=== PATIENT | female | born 1945 | race Caucasian/White ===

== ENCOUNTER 2023-06-07 11:36 | Inpatient (IN) | payer MEDICARE, BC, SELFPAY ==
[2023-06-07 11:42] VITALS: BP 121/62; PULSE 66; RESP 18; TEMP 37; O2SAT 95
--- NOTE | 2023-06-07 11:46 | ED_ITS ---
HPI - General Adult General Chief complaint: Skin/Abscess/Foreign Body Stated complaint: cat bite/ L swollen ankle Time Seen by Provider: 06/07/23 12:33 Source: patient and family Mode of arrival: ambulatory Limitations: no limitations History of Present Illness HPI narrative: 78 yo female with history of afib on Xarelto, hypothyroidism, HLD who presents to the ER from home for evaluation of worsening redness, swelling and pain of the left lower leg after getting bitten by her cat at home on the evening of 06/05. She states she accidentally stepped on him and he bite her lower leg. There was minor bleeding from a puncture wound at the time. She saw her Podaitrist yesterday for a callus removal on 3rd toe of the left foot and the redness was still small. She states by yesterday afternoon the redness had spread around the bite and her daughter brought her to Urgent Care. She had chills but no fever. She was started on Augmentin which she took yesterday and today. She woke up today with rapid progression of the redness up the entire lower leg and down into the foot. She feels unwell, decreased appetite. No chest pain, SOB, N/V/D or abdominal pain. MD complaint: cat bite LLE Onset (ago): day(s) (2) Location: left and lower extremity Radiation: proximal Severity: moderate Severity scale (1-10): 6 Quality: aching Pain Consistency: constant Relieving factors: rest Exacerbating factors: other (palpation and ambulation) Associated symptoms: loss of appetite and other (chills) Treatments prior to arrival: other (augmentin) Related Data Allergies Allergy/AdvReac Type Severity Reaction Status Date / Time codeine AdvReac Nausea Verified 06/07/23 11:53 oxycodone AdvReac Nausea Uncoded 06/07/23 11:49 Review of Systems 2 Review of Systems: Yes all other systems are reviewed and are negative PMFSH Past Medical History Medical History (Updated 06/07/23 @ 13:32 by Yenny Patton) Blood clot in eye Glaucoma Hypothyroid HLD (hyperlipidemia) Hypertension 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 Atrial fibrillation Surgical History (Updated 06/07/23 @ 13:33 by Yenny Patton) Knee joint replacement status Social History Social History Smoked in Last 30 Days: No Use of substances other than those prescribed or required for medical reasons: No Advance Directives: No Advance Directives Information Provided: Yes Physical Exam ED Vital Signs: Vital Signs - 24 hr 06/07/23 11:42 06/07/23 13:22 Temperature 98.6 F 98.3 F Pulse Rate 66 74 Respiratory Rate 18 18 Blood Pressure 121/62 151/70 H Pulse Oximetry 95 97 Oxygen Delivery Method Room Air Room Air BMI result Body Mass Index 30.0 Appearance: Alert. Oriented X3. No acute distress. Head: normocephalic, atraumatic. Eyes: Pupils equal, round and reactive to light. ENT: Pharynx normal. No tonsillar swelling or exudate. Neck: Normal inspection. Neck supple. CVS: Normal heart rate and rhythm. Pulses normal. Respiratory: No respiratory distress. Breath sounds normal. Abdomen: Soft and nontender. +BS x4 Skin: Skin warm and dry. Normal skin color. Normal skin turgor. No rashes. Extremities: Left lower extremity with significant erythema circumfrentially to the lower leg and extending down to the foot. foot is warm and well perfused with 2+ PD Pulses. compartments soft and compressible. Neuro/psych: Oriented X 3. No motor deficit. No sensory deficit. CN II-XII intact. Normal speech and cognition. Course Course Course Narrative: This is a rapid medical exam: Additional HPI, ROS, PE not included below will be deferred to primary provider. Patient is an 78-year-old female presenting to the ED with pain, redness, and swelling to left lower leg after cat bite night. States it is her own cat, is UTD on vaccinations. She states she accidentally stepped on him which caused him to bite her. Reports chills Friday. Went to urgent care yesterday and started on Augmentin (took 2 doses) but states the redness has spread significantly since that time. Also reports some nausea. Significant erythema, warmth, and swelling to entire LLE. Plan: Blood cultures, labs Medications Administered Generic Name Dose Route Start Last Admin Trade Name Freq PRN Reason Stop Dose Admin Sodium Chloride 1,000 mls @ 999 mls/hr 06/07/23 13:00 06/07/23 13:19 Ns IVCONT 06/07/23 14:00 999 mls/hr .Q1H1M CHARLES Administration Discontinued Medications Generic Name Dose Route Start Last Admin Trade Name Rickq PRN Reason Stop Dose Admin Ampicillin Sodium/Sulbactam 100 mls @ 200 mls/hr 06/07/23 12:33 06/07/23 13:18 Sodium 3 gm/ Sodium Chloride IV 06/07/23 13:02 200 mls/hr ONCE ONE Administration Medical Decision Making Medical Decision Making [facility] Narrative: 78 yo female with history of afib on Xarelto, HLD, hypothyroidism presenting with worsening redness, pain and swelling of left lower leg after a cat bite 2 days ago. Took Augmentin x2 with significant increase in the redness size today. VSS on arrival, no fever or tachycardia. WBC 20K. blood cultures sent. patient is not septic at this time. patient will require admission for IV antibiotics and close monitoring. patient and family updated on plan of care IV unasyn ordered and 1 L IVF. hospitalist TT for admission Differential Diagnosis Differential Diagnoses: The differential diagnosis associated with the presentation includes cellulitis 2/2 cat bite, rhabdomyolysis, abscess, cat scratch fever, DVT, compartment syndrome Admission/Observation Consideration of admission/observation: Escalation of care including admission/observation considered leukocytosis 20K with rapid progression despite oral abx Consult Healthcare Provider Management of the patient was discussed with: Hospitalist Lab Data [facility] Lab Attestation statement: I reviewed the patient's lab results. significant leukocytosis 06/07/23 12:05 06/07/23 12:05 Labs: Lab Results 06/07/23 Range/Units 12:05 WBC 20.4 H (4.8-10.8) X10*3/uL RBC 4.01 L (4.20-5.50) X10*6/uL Hgb 12.1 (12.0-16.0) g/dl Hct 37.5 (37.0-47.0) % MCV 93.5 (80.0-98.0) fL MCH 30.2 (27.0-33.0) pg MCHC 32.3 (31.0-35.0) g/dl RDW 12.9 (11.0-16.0) % Plt Count 169 (160-400) X10*3/uL MPV 9.7 (9.4-12.3) fL Immature Gran % (Auto) 0.4 (0.0-0.4) % Neut % (Auto) 85.8 H (45-73) % Lymph % (Auto) 5.4 L (20-40) % [place] % (Auto) 8.0 (2-11) % Eos % (Auto) 0.3 (0-4) % Baso % (Auto) 0.1 (0-2) % Lymph # (Auto) 1.1 L (1.2-4.9) X10*3/uL [place] # (Auto) 1.6 H (0.1-1.2) X10*3/uL Eos # (Auto) 0.1 (0.0-0.4) X10*3/uL Baso # (Auto) 0.0 (0.0-0.2) X10*3/uL Abs Immat Gran (auto) 0.09 H (0.00-0.03) X10*3/uL Absolute Neuts (auto) 17.5 H (2.0-8.3) x10*3/uL Absolute Nucleated RBC 0.000 (0.0-0.012) X10*3/uL Nucleated RBC % (auto) 0.0 (0.0-0.2) /100WBC Smear Tech's Comments VERIFIED ESR 13 (0-20) MM/HR Sodium 137 (135-145) mmol/L Potassium 3.8 (3.3-5.1) mmol/L Chloride 106 (96-108) mmol/L Carbon Dioxide 22 (22-29) mmol/L Anion Gap 13 (12-20) BUN 29 H (9-16) mg/dL Creatinine 0.88 (0.5-1.4) mg/dL Estim Creat Clear Calc 53.8 Estimated GFR > 60 Random Glucose 124 H (60-115) mg/dL Lactic Acid 1.4 (0.5-2.0) mmol/L Calcium 8.8 (8.4-10.2) mg/dL Total Bilirubin 1.4 H (0.0-1.0) mg/dL AST 25 (5-31) U/L ALT 31 (0-31) U/L Alkaline Phosphatase 77 (39-117) U/L Total Creatine Kinase 37 (26-140) U/L C-Reactive Protein 14.69 H (< or = 0.50) mg/dL Total Protein 6.4 L (6.5-8.0) g/dL Albumin 3.7 (3.5-5.0) g/dL Independent Historian Clinical information obtained from an independent historian. History obtained from or confirmed by: Other (adult daughter at bedside) Tests considered The following testing was considered but not selected: considered LE doppler but on xarelto considered CT scan but no evidence of focal abscess on exam Prescription Management I considered prescription management with: Pain Medication and Antibiotic Chronic Conditions Patient?s care impacted by: Other (afib on xarelto) Critical Care Time Critical Care Time Critical Care Time: Yes Total Critical Care Time: 31 Attestation: I have personally provided critical care time exclusive of time spent on separately billable procedures. Time includes review of lab data, discussion with consultants, and monitoring for potential decompensation. Intervention performed as documented. Discharge Plan Discharge Clinical Impression: Infected cat bite of lower leg Qualifiers: Encounter type: initial encounter Laterality: left Qualified Code(s): S81.852A - Open bite, left lower leg, initial encounter Patient Disposition: Admitted As Inpatient
[2023-06-07 12:16] LABS: Basophils Percent Auto 0.1 % (0-2); Eosinophils Absolute Auto 0.1 X10*3/uL (0.0-0.4); Eosinophils Percent Auto 0.3 % (0-4); Hematocrit 37.5 % (37.0-47.0); Hemoglobin 12.1 g/dl (12.0-16.0); Imm Gran Abs Auto 0.09 X10*3/uL (0.00-0.03); Imm Gran Pct Auto 0.4 % (0.0-0.4); Lymphocytes Absolute Auto 1.1 X10*3/uL (1.2-4.9); Lymphocytes Percent Auto 5.4 % (20-40); MANUAL DIFF FLAG SCAN; Mean Corpuscular HGB Conc 32.3 g/dl (31.0-35.0); Mean Corpuscular Hemoglobin 30.2 pg (27.0-33.0); Mean Corpuscular Volume 93.5 fL (80.0-98.0); Mean Platelet Volume 9.7 fL (9.4-12.3); Monocytes Absolute Auto 1.6 X10*3/uL (0.1-1.2); Neutrophils Absolute Auto 17.5 x10*3/uL (2.0-8.3); Neutrophils Percent Auto 85.8 % (45-73); Platelet Count 169 X10*3/uL (160-400); Red Blood Count 4.01 X10*6/uL (4.20-5.50); Red Cell Distribution Width 12.9 % (11.0-16.0); SCAN SMEAR FLAG 1; White Blood Count 20.4 X10*3/uL (4.8-10.8)
[2023-06-07 12:29] LABS: Lactic Acid 1.4 mmol/L (0.5-2.0)
[2023-06-07 12:33] LABS: Alanine Aminotransferase 31 U/L (0-31); Albumin Level 3.7 g/dL (3.5-5.0); Alkaline Phosphatase 77 U/L (39-117); Anion Gap 13 (12-20); Aspartate Amino Transferase 25 U/L (5-31); Bilirubin Total 1.4 mg/dL (0.0-1.0); Blood Urea Nitrogen 29 mg/dL (9-16); C Reactive Protein 14.69 mg/dL (< or = 0.50); Calcium 8.8 mg/dL (8.4-10.2); Carbon Dioxide 22 mmol/L (22-29); Chloride 106 mmol/L (96-108); Creatinine Clr Calc Pharmacy 53.8; Estimated Glomerular Filt Rate > 60; Glucose Random 124 mg/dL (60-115); Potassium 3.8 mmol/L (3.3-5.1); Sodium 137 mmol/L (135-145); Total Protein 6.4 g/dL (6.5-8.0)
[2023-06-07 13:04] LABS: Erythrocyte Sedimentation Rate 13 MM/HR (0-20)
[2023-06-07] MEDS: Ampicillin Sodium/Sulbactam Na 3 GM in 0.9 % Sodium Chloride 100 ML IV ×2 (13:18→17:29)
[2023-06-07] MEDS: 0.9 % Sodium Chloride 1,000 ML 999 ML IVCONT (13:19)
[2023-06-07 13:22] VITALS: BP 151/70; PULSE 74; RESP 18; TEMP 36.8; O2SAT 97
[2023-06-07 13:29] LABS: SLIDE REVIEW VERIFIED
--- NOTE | 2023-06-07 13:57 | P.HPHOSP_ITS ---
<Statement entered by Padmini Blue MD - 06/07/23 15:55> the patient was seen and evaluated with MARC Aguilar. I agree with his note, assessment and plan with the following. An 78 y\o female with a PMH of?persistent AFib on Xarelto, HLD, and HTN who presents with lower left leg redness and swelling secondary to cat bite. # Left lower leg cellulitis secondary to cat bite Had 1 day of Augmentin with worsening symptoms Start Unasyn follow clinical course Rest of evaluations by MARC note. History of Present Illness Date of Service: 06/07/23 Attending physician on admission: Padmini Blue Chief Complaint: Cellulitis from cat bite Pt is an 78-year-old female with a PMH significant for?persistent AFib on Xarelto, hypothyroidism, HLD, and HTN who presents to the ED for evaluation of lower left leg redness and swelling secondary to cat bite. Patient states on evening she went to take a bath and stepped on her cat Aixa who was laying in front of the tub. Cat responded by biting pt in the ankle, drawing blood. Pt reports she swab the area with alcohol, soaked her leg, and put a bandage on the bite. Next day patient noticed redness and swelling around her left ankle, felt chills but did not register a fever. Went to an urgent care at the urging from her daughter and was prescribed Augmentin. Patient took medication as prescribed, but when she awoke this morning patient noticed redness had significantly advanced upper leg to just below her knee, and swelling had also significantly increased. Daughter then prompted patient to come to the emergency room for further evaluation. Patient has experienced some nausea, but no vomiting. Denies any other systemic symptom: No chest pain/pressure, palpitations. No abdominal pain. No significant difficulty ambulating. No joint pain. Denies shortness of breath. In the ED patient was afebrile but slightly hypertensive 151/70. Labs were significant for leukocytosis of 20.4, BUN 29, bilirubin 1.4, C-reactive protein 14.69. Labs otherwise grossly unremarkable. Pt was treated with IVF and Unasyn. Pt will be admitted to the hospital for cellulitis secondary to cat bite that has failed outpatient therapy. 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 Atrial fibrillation Surgical History Knee joint replacement status Social History Smoked in Last 30 Days: No Use of substances other than those prescribed or required for medical reasons: No Advance Directives: No Advance Directives Information Provided: Yes Meds Allergies Allergy/AdvReac Type Severity Reaction Status Date / Time codeine AdvReac Nausea Verified 06/07/23 11:53 oxycodone AdvReac Nausea Uncoded 06/07/23 11:49 Active Medications: Current Medications Sodium Chloride (Ns) 1,000 mls @ 999 mls/hr IVCONT .Q1H1M CHARLES Stop: 06/07/23 14:00 Last Admin: 06/07/23 13:19 Dose: 999 mls/hr Home Medications Medication Instructions Recorded Confirmed Last Taken Type amoxicillin 400 mg-potassium 1 tab PO BID 06/07/23 06/07/23 06/07/23 History clavulanate 57 mg chewable tablet atenolol 50 mg tablet 50 mg PO DAILY 06/07/23 06/07/23 06/07/23 History atorvastatin 20 mg tablet 20 mg PO BEDTIME 06/07/23 06/07/23 06/06/23 History ketorolac 0.5 % eye drops 1 drp ophthalmic (eye) QID PRN 06/07/23 06/07/23 Unknown History Pain, Mild levothyroxine 88 mcg tablet 88 mcg PO DAILY@0600 06/07/23 06/07/23 06/07/23 History lisinopril 10 mg tablet 10 mg PO DAILY 06/07/23 06/07/23 06/07/23 History rivaroxaban 20 mg tablet (Xarelto) 20 mg PO DAILY@1700 06/07/23 06/07/23 06/06/23 History timolol maleate 0.5 % eye drops 1 drp ophthalmic (eye) BID 06/07/23 06/07/23 06/07/23 History Physical Exam 2 Vital Signs and Narrative: Vital Signs: Last Vital Signs Temp 98.3 F 06/07/23 13:22 Pulse 74 06/07/23 13:22 Resp 18 06/07/23 13:22 BP 151/70 H 06/07/23 13:22 Pulse Ox 97 06/07/23 13:22 O2 Del Method Room Air 06/07/23 13:22 BMI result Body Mass Index 30.0 General: AOx3, no acute distress Resp: CTA bilaterally CVS: Irregularly irregular rhythm GI: +BS, NT, no distention Neuro: Cranial nerves II-XII grossly intact bilaterally. Motor grossly intact bilaterally Extremities: Left lower extremity swelling and erythema from ankle to knee. See picture below. Psych: Appropriate affect Results Labs 06/07/23 12:05 06/07/23 12:05 Labs: Laboratory Results - last 24 hr 06/07/23 12:05 MCV 93.5 MCH 30.2 MCHC 32.3 RDW 12.9 Plt Count 169 MPV 9.7 Immature Gran % (Auto) 0.4 Neut % (Auto) 85.8 H Lymph % (Auto) 5.4 L [place] % (Auto) 8.0 Eos % (Auto) 0.3 Baso % (Auto) 0.1 Lymph # (Auto) 1.1 L [place] # (Auto) 1.6 H Eos # (Auto) 0.1 Baso # (Auto) 0.0 Abs Immat Gran (auto) 0.09 H Absolute Neuts (auto) 17.5 H Absolute Nucleated RBC 0.000 Nucleated RBC % (auto) 0.0 Smear Tech's Comments VERIFIED ESR 13 Anion Gap 13 Estim Creat Clear Calc 53.8 Estimated GFR > 60 Random Glucose 124 H Lactic Acid 1.4 Calcium 8.8 Total Bilirubin 1.4 H AST 25 ALT 31 Alkaline Phosphatase 77 Total Creatine Kinase 37 C-Reactive Protein 14.69 H Total Protein 6.4 L Albumin 3.7 Assessment and Plan (1) Infected cat bite of lower leg: Qualifiers: Encounter type: initial encounter Laterality: left Qualified Code(s): S81.852A - Open bite, left lower leg, initial encounter; L08.9 - Local infection of the skin and subcutaneous tissue, unspecified; W55.01XA - Bitten by cat, initial encounter Status: Acute Plan Pt is an 78-year-old female with a PMH significant for?persistent AFib on Xarelto, hypothyroidism, HLD, and HTN who presents to the ED for evaluation of lower left leg redness and swelling secondary to cat bite. Pt will be admitted to the hospital for cellulitis secondary to cat bite that has failed outpatient therapy. Left lower leg cellulitis secondary to cat bite Patient initially presented yesterday to urgent care with redness only at her ankle, was prescribed Augmentin Woke up today with chills and redness advanced all the way up leg to just below the knee Will treat with Unasyn, started on 06/07/2023 Persistent AFib Continue atenolol, Xarelto HLD Continue statin HTN Continue lisinopril Hypothyroidism Continue levothyroxine Full Code Attending:?Dr. Christy DVT Prophylaxis: On Xarelto Pt will require a hospitalization of at least two nights for treatment of?left lower leg cellulitis secondary to cat bite that has failed outpatient therapy. Patient will require IV antibiotics. Time Spent With Patient Time: Total time managing care of this patient today ____ minutes. Quality Stroke Does the patient have a stroke diagnosis?: No VTE Prior VTE?: No VTE Risk Level:: Medical - moderate - high VTE Device Contraindication: Treatment Not Indicated VTE Drug Contraindication: N/A - Med Ordered
--- NOTE | 2023-06-07 14:51 | PC.NURSE ---
aox4. walked well to BR clear yellow urine. calm, coop. no distress. resting
--- NOTE | 2023-06-07 15:04 | PHA.MEDREC ---
Pharmacy Consult ? Medication Reconciliation Pharmacy has completed the medication reconciliation. Patient with list at bedside that matched claim history, stated she is no longer using nyamc powder or ketoconazole cream for skin folds. Took all morning meds today.
[2023-06-07 15:48] VITALS: BP 125/64; PULSE 76; RESP 16; O2SAT 97
[2023-06-07 16:00] VITALS: BP 131/61; PULSE 75; RESP 18; TEMP 36.2; O2SAT 96
[2023-06-07] MEDS: Rivaroxaban 20 MG TABLET PO (17:29)
[2023-06-07] MEDS: 0.9 % Sodium Chloride Flush 3 ML SYRINGE IVFLUSH ×2 (17:29→20:40)
[2023-06-07 19:12] VITALS: BP 129/60; PULSE 78; RESP 17; TEMP 36.2; O2SAT 96
[2023-06-07] MEDS: Atorvastatin Calcium 20 MG TABLET PO (20:39)
[2023-06-08] MEDS: Ampicillin Sodium/Sulbactam Na 3 GM in 0.9 % Sodium Chloride 100 ML IV ×4 (00:03→17:53)
[2023-06-08] MEDS: Acetaminophen 325 MG TABLET 650 MG PO ×3 (00:03→17:55)
[2023-06-08 04:00] VITALS: BP 138/67; PULSE 71; RESP 18; TEMP 37; O2SAT 94
[2023-06-08 05:42] LABS: Hemoglobin 11.3 g/dl (12.0-16.0); Mean Corpuscular HGB Conc 31.4 g/dl (31.0-35.0); Mean Corpuscular Hemoglobin 29.9 pg (27.0-33.0); Mean Corpuscular Volume 95.2 fL (80.0-98.0); Mean Platelet Volume 9.8 fL (9.4-12.3); Platelet Count 154 X10*3/uL (160-400); Red Blood Count 3.78 X10*6/uL (4.20-5.50); Red Cell Distribution Width 13.1 % (11.0-16.0); White Blood Count 15.2 X10*3/uL (4.8-10.8)
[2023-06-08 05:55] LABS: Anion Gap 13 (12-20); Blood Urea Nitrogen 19 mg/dL (9-16); Calcium 8.5 mg/dL (8.4-10.2); Carbon Dioxide 24 mmol/L (22-29); Chloride 111 mmol/L (96-108); Creatinine Clr Calc Pharmacy 63.9; Estimated Glomerular Filt Rate > 60; Glucose Random 94 mg/dL (60-115); Potassium 4.1 mmol/L (3.3-5.1); Sodium 144 mmol/L (135-145)
[2023-06-08] MEDS: Levothyroxine Sodium 88 MCG TABLET PO (06:02)
[2023-06-08 07:52] VITALS: BP 155/77; PULSE 70; RESP 16; TEMP 36.6; O2SAT 95
[2023-06-08] MEDS: atenoloL 50 MG TABLET PO (08:04)
[2023-06-08] MEDS: 0.9 % Sodium Chloride Flush 3 ML SYRINGE IVFLUSH ×3 (08:04→21:38)
[2023-06-08] MEDS: lisinopriL 10 MG TABLET PO (08:04)
--- NOTE | 2023-06-08 10:39 | MHC.CM.PN ---
IMM 06/08/23 Pt lives in home with her son, she is independent, does not have home health services. She has a walker and a cane at home, and uses the cane outside of the house. Daughter and son are HCP and alternate, she has document at home, it is not on file here. Her PCP is Stanislav Dtoson at [facility] in [facility]. Plan is home, self care, family to transport home. CM to follow and assist with DC plan.
--- NOTE | 2023-06-08 14:04 | P.PNIM_ITS ---
Subjective Subjective Date of Service: 06/08/23 Interval History: Seen and evaluated Feels little better ERythema improving no fever overnight Review of Systems Review of Systems: Yes all other systems are reviewed and are negative Physical Exam 2 Vital Signs: Vital Signs: Last Vital Signs Temp 97.8 F 06/08/23 07:52 Pulse 70 06/08/23 07:52 Resp 16 06/08/23 07:52 BP 155/77 H 06/08/23 07:52 Pulse Ox 95 06/08/23 07:52 O2 Del Method Room Air 06/08/23 07:52 BMI result Body Mass Index 30.0 Const: Other: Constitutional : Awake, interactive, not in distress Neck : Normal inspection, Supple Cardiovascular : RRR, no JVP, no lower extremity edema Respiratory : good bilateral air entry, no crackles, wheezes or rhonchi Gastrointestinal: soft, lax, Normal bowel sounds, Non tender Skin : Warm, Dry, LE erythema up to the knee which seems resolving with less tenderness Neurological : Alert & oriented x3, No focal deficit Objective Data Active Medications Acetaminophen (Acetaminophen 325 Mg Tablet) 650 mg PO Q6H PRN PRN Reason: Pain, Mild (Pain Scale 1-3) Last Admin: 06/08/23 08:04 Dose: 650 mg Documented By: COTEMA Atenolol (Atenolol 50 Mg Tablet) 50 mg PO DAILY [facility]; Protocol Last Admin: 06/08/23 08:04 Dose: 50 mg Documented By: COTEMA Atorvastatin Calcium (Atorvastatin Calcium 20 Mg Tablet) 20 mg PO BEDTIME [facility] Last Admin: 06/07/23 20:39 Dose: 20 mg Documented By: CASTILM Benzonatate (Benzonatate 100 Mg Capsule) 100 mg PO TID PRN PRN Reason: Cough Docusate Sodium (Docusate Sodium 100 Mg Capsule) 100 mg PO DAILY PRN PRN Reason: Constipation Ampicillin Sodium/Sulbactam (Sodium 3 gm/ Sodium Chloride) 100 mls @ 200 mls/hr IV Q6H [facility] Last Infusion: 06/08/23 13:31 Dose: Infused Documented By: COTEMA Ketorolac Tromethamine (Ketorolac Tromethamine 0.5% Op 5 Ml Drops) 1 drop EYE- BOTH QID PRN PRN Reason: Pain, Mild Levothyroxine Sodium (Levothyroxine Sodium 88 Mcg Tablet) 88 mcg PO DAILY@0600 [facility] Last Admin: 06/08/23 06:02 Dose: 88 mcg Documented By: CASTILM Lisinopril (Lisinopril 10 Mg Tablet) 10 mg PO DAILY [facility]; Protocol Last Admin: 06/08/23 08:04 Dose: 10 mg Documented By: REMEDIOS Melatonin (Melatonin 3 Mg Tablet) 6 mg PO BEDTIME PRN PRN Reason: Insomnia Ondansetron HCl (Ondansetron Hcl 4 Mg/2 Ml Vial) 4 mg IVPUSH Q8H PRN PRN Reason: Nausea and Vomiting Rivaroxaban (Rivaroxaban 20 Mg Tablet) 20 mg PO DAILY@1700 [facility] Last Admin: 06/07/23 17:29 Dose: 20 mg Documented By: PRESTJYOTI Sodium Chloride (0.9 % Sodium Chloride Flush 3 Ml Syringe) 3 ml IVFLUSH QSHIFT [facility] Last Admin: 06/08/23 08:04 Dose: 3 ml Documented By: REMEDIOS Timolol Maleate (Timolol Maleate 0.5 % Oph Areli 5 Ml Drbtl) 1 drop EYE-BOTH BID [facility] Last Admin: 06/08/23 08:01 Dose: Not Given Documented By: REMEDIOS Non-Admin Reason: Med Not Available Labs 06/08/23 05:20 06/08/23 05:20 Labs: Laboratory Results - last 24 hr 06/08/23 05:20 MCV 95.2 MCH 29.9 MCHC 31.4 RDW 13.1 Plt Count 154 L MPV 9.8 Absolute Nucleated RBC 0.000 Nucleated RBC % (auto) 0.0 Anion Gap 13 Estim Creat Clear Calc 63.9 Estimated GFR > 60 Random Glucose 94 Calcium 8.5 Assessment and Plan (1) Infected cat bite of lower leg: Status: Acute Plan Pt is an 78-year-old female with a PMH significant for?persistent AFib on Xarelto, hypothyroidism, HLD, and HTN who presents to the ED for evaluation of lower left leg redness and swelling secondary to cat bite. Pt will be admitted to the hospital for cellulitis secondary to cat bite that has failed outpatient therapy. Left lower leg cellulitis secondary to cat bite pending cultures Unasyn, started on 06/07/2023 keep leg elevated and clean Persistent AFib Continue atenolol, Xarelto HLD Continue statin HTN Continue lisinopril Hypothyroidism Continue levothyroxine Full Code Attending:?Dr. Christy DVT Prophylaxis: On Xarelto Pt will require a hospitalization overnight for treatment of?left lower leg cellulitis secondary to cat bite that has failed outpatient therapy. Patient will require IV antibiotics. Time Spent With Patient Time: Total time managing care of this patient today ____ minutes. Quality Stroke Does the patient have a stroke diagnosis?: No VTE Prior VTE?: No VTE Risk Level:: Medical - moderate - high VTE Device Contraindication: Treatment Not Indicated VTE Drug Contraindication: N/A - Med Ordered
[2023-06-08 15:50] VITALS: BP 133/81; PULSE 75; RESP 18; TEMP 36.2; O2SAT 95
[2023-06-08] MEDS: Rivaroxaban 20 MG TABLET PO (17:53)
[2023-06-08 19:45] VITALS: BP 132/60; PULSE 73; RESP 18; TEMP 36.3; O2SAT 96
[2023-06-08] MEDS: Atorvastatin Calcium 20 MG TABLET PO (21:37)
[2023-06-09] MEDS: Acetaminophen 325 MG TABLET 650 MG PO (00:27)
[2023-06-09] MEDS: Ampicillin Sodium/Sulbactam Na 3 GM in 0.9 % Sodium Chloride 100 ML IV ×4 (00:30→17:54)
[2023-06-09 03:41] VITALS: BP 156/79; PULSE 77; RESP 18; TEMP 36.2; O2SAT 94
[2023-06-09] MEDS: Levothyroxine Sodium 88 MCG TABLET PO (05:37)
[2023-06-09 06:21] LABS: Hematocrit 37.4 % (37.0-47.0); Hemoglobin 11.8 g/dl (12.0-16.0); Mean Corpuscular HGB Conc 31.6 g/dl (31.0-35.0); Mean Corpuscular Hemoglobin 30.4 pg (27.0-33.0); Mean Corpuscular Volume 96.4 fL (80.0-98.0); Mean Platelet Volume 9.9 fL (9.4-12.3); Platelet Count 158 X10*3/uL (160-400); Red Blood Count 3.88 X10*6/uL (4.20-5.50); White Blood Count 15.2 X10*3/uL (4.8-10.8)
[2023-06-09 06:39] LABS: Anion Gap 13 (12-20); Blood Urea Nitrogen 14 mg/dL (9-16); Calcium 8.8 mg/dL (8.4-10.2); Carbon Dioxide 22 mmol/L (22-29); Chloride 111 mmol/L (96-108); Creatinine Clr Calc Pharmacy 72.8; Estimated Glomerular Filt Rate > 60; Glucose Random 88 mg/dL (60-115); Potassium 3.9 mmol/L (3.3-5.1); Sodium 142 mmol/L (135-145)
[2023-06-09 07:49] VITALS: BP 172/101; PULSE 98; RESP 18; TEMP 36.4; O2SAT 98
[2023-06-09 08:19] VITALS: BP 140/98
[2023-06-09] MEDS: atenoloL 50 MG TABLET PO (08:40)
[2023-06-09] MEDS: lisinopriL 10 MG TABLET PO (08:40)
[2023-06-09] MEDS: 0.9 % Sodium Chloride Flush 3 ML SYRINGE IVFLUSH ×2 (08:44→17:09)
[2023-06-09] MEDS: timoloL maleate 0.5 % Oph Sol 5 ML DRBTL 1 DROP EYE-BOTH ×2 (08:45→21:09)
[2023-06-09] MEDS: ondansetron HCL 4 MG/2 ML VIAL IVPUSH (08:49)
--- NOTE | 2023-06-09 12:45 | P.PNIM_ITS ---
Subjective Subjective Date of Service: 06/09/23 Interval History: Seen and evaluated Feels tired, sore throat having diarrhea ERythema improving no fever overnight Review of Systems Review of Systems: Yes all other systems are reviewed and are negative Physical Exam 2 Vital Signs: Vital Signs: Last Vital Signs Temp 97.6 F 06/09/23 07:49 Pulse 98 06/09/23 07:49 Resp 18 06/09/23 07:49 BP 140/98 H 06/09/23 08:19 Pulse Ox 98 06/09/23 07:49 O2 Del Method Room Air 06/09/23 07:49 BMI result Body Mass Index 30.0 Const: Other: Constitutional : Awake, interactive, not in distress Neck : Normal inspection, Supple Cardiovascular : RRR, no JVP, no lower extremity edema Respiratory : good bilateral air entry, no crackles, wheezes or rhonchi Gastrointestinal: soft, lax, Normal bowel sounds, Non tender Skin : Warm, Dry, LE erythema up to the knee which seems resolving with less tenderness Neurological : Alert & oriented x3, No focal deficit Objective Data Active Medications Acetaminophen (Acetaminophen 325 Mg Tablet) 650 mg PO Q6H PRN PRN Reason: Pain, Mild (Pain Scale 1-3) Last Admin: 06/09/23 00:27 Dose: 650 mg Documented By: SACHA Atenolol (Atenolol 50 Mg Tablet) 50 mg PO DAILY [facility]; Protocol Last Admin: 06/09/23 08:40 Dose: 50 mg Documented By: FAVIO Atorvastatin Calcium (Atorvastatin Calcium 20 Mg Tablet) 20 mg PO BEDTIME [facility] Last Admin: 06/08/23 21:37 Dose: 20 mg Documented By: SACHA Benzocaine (Throat Lozenge, Medicated Lozenge) 1 lozenge MUCOUS MEM Q2H PRN PRN Reason: Sore Throat Benzonatate (Benzonatate 100 Mg Capsule) 100 mg PO TID PRN PRN Reason: Cough Docusate Sodium (Docusate Sodium 100 Mg Capsule) 100 mg PO DAILY PRN PRN Reason: Constipation Ampicillin Sodium/Sulbactam (Sodium 3 gm/ Sodium Chloride) 100 mls @ 200 mls/hr IV Q6H [facility] Last Infusion: 06/09/23 12:36 Dose: Infused Documented By: AFVIO Ketorolac Tromethamine (Ketorolac Tromethamine 0.5% Op 5 Ml Drops) 1 drop EYE- BOTH QID PRN PRN Reason: Pain, Mild Levothyroxine Sodium (Levothyroxine Sodium 88 Mcg Tablet) 88 mcg PO DAILY@0600 [facility] Last Admin: 06/09/23 05:37 Dose: 88 mcg Documented By: SACHA Lisinopril (Lisinopril 10 Mg Tablet) 10 mg PO DAILY [facility]; Protocol Last Admin: 06/09/23 08:40 Dose: 10 mg Documented By: FAVIO Melatonin (Melatonin 3 Mg Tablet) 6 mg PO BEDTIME PRN PRN Reason: Insomnia Ondansetron HCl (Ondansetron Hcl 4 Mg/2 Ml Vial) 4 mg IVPUSH Q8H PRN PRN Reason: Nausea and Vomiting Last Admin: 06/09/23 08:49 Dose: 4 mg Documented By: FAVIO Rivaroxaban (Rivaroxaban 20 Mg Tablet) 20 mg PO DAILY@1700 [facility] Last Admin: 06/08/23 17:53 Dose: 20 mg Documented By: COTEMA Sodium Chloride (0.9 % Sodium Chloride Flush 3 Ml Syringe) 3 ml IVFLUSH QSHIFT [facility] Last Admin: 06/09/23 08:44 Dose: 3 ml Documented By: FAVIO Timolol Maleate (Timolol Maleate 0.5 % Oph Areli 5 Ml Drbtl) 1 drop EYE-BOTH BID [facility] Last Admin: 06/09/23 08:45 Dose: 1 drop Documented By: FAVIO Labs 06/09/23 06:05 06/09/23 06:05 Labs: Laboratory Results - last 24 hr 06/09/23 06:05 MCV 96.4 MCH 30.4 MCHC 31.6 RDW 13.0 Plt Count 158 L MPV 9.9 Absolute Nucleated RBC 0.000 Nucleated RBC % (auto) 0.0 Anion Gap 13 Estim Creat Clear Calc 72.8 Estimated GFR > 60 Random Glucose 88 Calcium 8.8 Microbiology Microbiology Results: Microbiology 06/07/23 13:34 Blood Culture - Preliminary Blood - Venous No growth after 24 hours. 06/07/23 12:05 Blood Culture - Preliminary Blood - Venous No growth after 24 hours. Assessment and Plan (1) Infected cat bite of lower leg: Status: Acute (2) Diarrhea: Status: Acute Plan Pt is an 78-year-old female with a PMH significant for?persistent AFib on Xarelto, hypothyroidism, HLD, and HTN who presents to the ED for evaluation of lower left leg redness and swelling secondary to cat bite. Pt will be admitted to the hospital for cellulitis secondary to cat bite that has failed outpatient therapy. Left lower leg cellulitis secondary to cat bite pending cultures Unasyn, started on 06/07/2023 keep leg elevated and clean Diarrhea Check C.Diff Imodium if negative Sore throat Check Covid19 Persistent AFib Continue atenolol, Xarelto HLD Continue statin HTN Continue lisinopril Hypothyroidism Continue levothyroxine Full Code Attending:?Dr. Christy DVT Prophylaxis: On Xarelto Pt will require a hospitalization overnight for treatment of?left lower leg cellulitis secondary to cat bite that has failed outpatient therapy. Patient will require IV antibiotics. Time Spent With Patient Time: Total time managing care of this patient today ____ minutes. Quality Stroke Does the patient have a stroke diagnosis?: No VTE Prior VTE?: No VTE Risk Level:: Medical - moderate - high VTE Device Contraindication: Treatment Not Indicated VTE Drug Contraindication: N/A - Med Ordered
--- NOTE | 2023-06-09 13:11 | MHC.CM.PN ---
Per MD rounds no discharge today. Patient continues with diarrhea. DP Home self care. Family will provide transportation home.
[2023-06-09 13:22] LABS: CDiff Gene PCR NEGATIVE (Negative)
[2023-06-09 15:35] VITALS: BP 150/80; PULSE 68; RESP 20; TEMP 37.6; O2SAT 96
[2023-06-09] MEDS: Rivaroxaban 20 MG TABLET PO (17:07)
[2023-06-09 19:48] VITALS: BP 169/78; PULSE 78; RESP 18; TEMP 36.3; O2SAT 97
[2023-06-09] MEDS: Atorvastatin Calcium 20 MG TABLET PO (21:04)
[2023-06-09] MEDS: Melatonin 3 MG TABLET 6 MG PO (21:06)
[2023-06-10] MEDS: Ampicillin Sodium/Sulbactam Na 3 GM in 0.9 % Sodium Chloride 100 ML IV ×3 (00:48→13:25)
[2023-06-10] MEDS: 0.9 % Sodium Chloride Flush 3 ML SYRINGE IVFLUSH ×2 (00:48→06:22)
[2023-06-10 03:32] VITALS: BP 131/85; RESP 18; TEMP 36.1; O2SAT 98
[2023-06-10] MEDS: Levothyroxine Sodium 88 MCG TABLET PO (06:22)
[2023-06-10 07:50] VITALS: BP 146/78; PULSE 61; RESP 18; TEMP 36; O2SAT 96
[2023-06-10] MEDS: lisinopriL 10 MG TABLET PO (09:07)
[2023-06-10] MEDS: atenoloL 50 MG TABLET PO (09:07)
[2023-06-10] MEDS: timoloL maleate 0.5 % Oph Sol 5 ML DRBTL 1 DROP EYE-BOTH (09:08)
[2023-06-10 10:09] LABS: COVID-19 Test Negative (Negative); IDNOW Serial# 08D9AD1C
--- NOTE | 2023-06-10 10:54 | PM.DS ---
DS: Providers Provider Date of Service: 06/10/23 Date of admission: 06/07/23 14:48 Primary care physician: Stanislav Dotson PA-C DS: Diagnosis Discharge Diagnosis (1) Infected cat bite of lower leg: Status: Acute (2) Diarrhea: Status: Acute DS: Summary Hospital Course Hospital Course: Admission note HPI Pt is an 78-year-old female with a PMH significant for?persistent AFib on Xarelto, hypothyroidism, HLD, and HTN who presents to the ED for evaluation of lower left leg redness and swelling secondary to cat bite. Patient states on evening she went to take a bath and stepped on her cat Aixa who was laying in front of the tub. Cat responded by biting pt in the ankle, drawing blood. Pt reports she swab the area with alcohol, soaked her leg, and put a bandage on the bite. Next day patient noticed redness and swelling around her left ankle, felt chills but did not register a fever. Went to an urgent care at the urging from her daughter and was prescribed Augmentin. Patient took medication as prescribed, but when she awoke this morning patient noticed redness had significantly advanced upper leg to just below her knee, and swelling had also significantly increased. Daughter then prompted patient to come to the emergency room for further evaluation. Patient has experienced some nausea, but no vomiting. Denies any other systemic symptom: No chest pain/pressure, palpitations. No abdominal pain. No significant difficulty ambulating. No joint pain. Denies shortness of breath. In the ED patient was afebrile but slightly hypertensive 151/70. Labs were significant for leukocytosis of 20.4, BUN 29, bilirubin 1.4, C-reactive protein 14.69. Labs otherwise grossly unremarkable. Pt was treated with IVF and Unasyn. Pt will be admitted to the hospital for cellulitis secondary to cat bite that has failed outpatient therapy. Hospital course Treated fir Left lower leg cellulitis secondary to cat bite with negative blood cultures with IV Unasyn, started on 06/07/2023 with good improvement and resolution of pain and erythema. keep leg elevated and clean Has Diarrhea. Negative C.Diff. To use as needed Imodium. Continue Augmentin as prescribed Use Imodium as needed for diarrhea Follow with PCP as scheduled Come back to ED for any fever or worsening skin infection Time Spent with Patient Time attestation: Total time managing care of this patient today ____ minutes. Discharge coordination time: Greater than 30 minutes Quality: Safe Use of Opioids Does Pt have an Active Cancer Diagnosis on the Problem List?: No Quality: Stroke Does the patient have a stroke diagnosis?: No Physical Exam Vital Signs: Vital Signs: Last Vital Signs Temp 96.8 F 06/10/23 07:50 Pulse 61 06/10/23 07:50 Resp 18 06/10/23 07:50 BP 146/78 H 06/10/23 07:50 Pulse Ox 96 06/10/23 07:50 O2 Del Method Room Air 06/10/23 07:50 BMI result Body Mass Index 30.0 Const: Other: Constitutional : Awake, interactive, not in distress Neck : Normal inspection, Supple Cardiovascular : RRR, no JVP, no lower extremity edema Respiratory : good bilateral air entry, no crackles, wheezes or rhonchi Gastrointestinal: soft, lax, Normal bowel sounds, Non tender Skin : Warm, Dry, LE erythema resolved with no tenderness Neurological : Alert & oriented x3, No focal deficit DS: Data Data Completed and Pending Labs on day of discharge: Laboratory Results - last 24 hr 06/09/23 06/10/23 12:10 09:42 C. difficile Tox B Gene NEGATIVE COVID-19 ([facility]) Negative COVID-19 Clin Com See Note Preliminary micro results at discharge 06/07/23 13:34 Blood Culture - Preliminary Blood - Venous No growth after 48 hours. 06/07/23 12:05 Blood Culture - Preliminary Blood - Venous No growth after 48 hours. Discharge Plan Discharge Anticipated Discharge Date/Time: 06/10/23 10:49 Patient Disposition: Home, Self-Care Discharge Diagnosis: Cellulitis Referrals: Stanislav Dotson PA-C [Primary Care Provider] - 1 Week Discharge Medications: New loperamide 2 mg Capsule 2 mg PO Q4H PRN (Reason: Diarrhea) Qty: 10 0RF amoxicillin-pot clavulanate 875-125 mg tablet 1 tab PO BID Qty: 10 0RF Continued atorvastatin 20 mg tablet 20 mg PO BEDTIME ketorolac 0.5 % drops 1 drp ophthalmic (eye) QID PRN (Reason: Pain, Mild) levothyroxine 88 mcg tablet 88 mcg PO DAILY@0600 lisinopril 10 mg tablet 10 mg PO DAILY timolol maleate 0.5 % drops 1 drp ophthalmic (eye) BID atenolol 50 mg tablet 50 mg PO DAILY Xarelto 20 mg tablet 20 mg PO DAILY@1700 Discontinued amoxicillin-pot clavulanate 400-57 mg tablet,chewable 1 tab PO BID Rx Instructions: started 06/06/23 PM dose x 10 days Discharge Orders: Discharge Order (Routine); Ordered 06/10/23 Ordered By: Padmini Blue Diet: Advance to usual diet Activity on Discharge: As tolerated Stand Alone Forms: Patient Portal Discharge page Care Plan Goals: Read below Health Concerns: Read below Plan of Treatment: Read below Assessment: You were admitted for treatment of skin infection after a cat bite. improved with IV antibiotics. Continue Augmentin as prescribed Use Imodium as needed for diarrhea Follow with PCP as scheduled Come back to ED for any fever or worsening skin infection
--- NOTE | 2023-06-10 13:53 | MHC.CM.PN ---
pt dcd home no services
--- NOTE | 2023-06-10 13:55 | MHC.CM.PN ---
pt dcd home no services
== END 2023-06-10 15:26 | disposition home or self-care (01) | DRG 603 ==
LOC: HO.ED 14:06 → HO.EDOVER 14:54 → HO.S3 16:05
PROVIDERS: Physician Assistant; Registered Nurse Emergency; Admitting Provider Student in an Organized Health Care Education/Training Program; Emergency Provider Internal Medicine; PCP Registered Nurse; Visit Provider Student in an Organized Health Care Education/Training Program
DX: L03.116 Cellulitis of left lower limb (principal); I48.21 Permanent atrial fibrillation; E03.9 Hypothyroidism, unspecified; J02.9 Acute pharyngitis, unspecified; E78.5 Hyperlipidemia, unspecified; R19.7 Diarrhea, unspecified; Z20.822 Contact with and (suspected) exposure to COVID-19; W55.01XS Bitten by cat, sequela; Z23 Encounter for immunization; Z79.01 Long term (current) use of anticoagulants; Z79.890 Hormone replacement therapy; Z79.899 Other long term (current) drug therapy
CPT/HCPCS: 36415; 80048; 80053; 82550; 83605; 85025; 85027; 85652; 86140; 87040; 87493; 87635; 90686; 97161; 99284; J0295; J2405

== ENCOUNTER → 2023-06-07 14:48 | Outpatient (BNV) | payer MEDICARE, BC, SELFPAY | PROVIDERS: Admitting Provider Student in an Organized Health Care Education/Training Program; Emergency Provider Internal Medicine; Visit Provider Student in an Organized Health Care Education/Training Program | DX: S81.852A Open bite, left lower leg, initial encounter (principal); L08.89 Other specified local infections of the skin and subcutaneous tissue; W55.01XA Bitten by cat, initial encounter; R19.7 Diarrhea, unspecified | CPT/HCPCS: 99223; 99232; 99233; 99239 ==

== ENCOUNTER 2023-06-12 18:06 | Emergency (ER) | payer MEDICARE, BC, SELFPAY ==
--- NOTE | ~2023-06-12 | US_ITS ---
EXAMINATION: US VENOUS ULTRASOUND WITH DOPPLER LOWER EXTREMITY, LEFT CLINICAL INFORMATION: Pain and swelling COMPARISON: None available. TECHNIQUE: Ultrasound of the deep veins is performed from the hip to the calf with compression sonography and color and pulse Doppler assessment. Spectral analysis with color-flow imaging is performed. FINDINGS: There is normal venous compression and respiratory variation and augmented flow. The visualized common femoral vein, superficial femoral vein, profunda femoral vein, popliteal vein, and the trifurcation region shows no evidence of deep venous thrombosis. There is no significant popliteal fossa cyst. If the patient's symptoms persist, followup ultrasound in 5 days 7 days might be of value to exclude proximal propagation from a non-visualized calf vein. US/US venous duplex LE LT IMPRESSION: No DVT demonstrated in the left lower extremity.
[2023-06-12 18:12] VITALS: BP 164/90; PULSE 82; RESP 16; TEMP 36.8; O2SAT 96; BMI 35.7
--- NOTE | 2023-06-12 18:18 | ED_ITS ---
HPI - General Adult General Chief complaint: General Medical Stated complaint: ?cellutitis left leg Time Seen by Provider: 06/12/23 19:21 Source: patient and family Mode of arrival: ambulatory Limitations: no limitations History of Present Illness HPI narrative: Patient is an 78-year-old female presenting to the emergency department with swelling to her left lower leg. Patient was recently inpatient for treatment of cellulitis related to a cat bite which failed outpatient antibiotics. Patient reports that she was discharged home on Augmentin which she has been taking as prescribed. States that she noted increased swelling to her left lower leg and foot over the past 1-2 days. Also complains of mild tenderness to popliteal fossa. Denies fevers. Denies chest pain, palpitations, shortness of breath. Terence grossman PCP wanted patient to have ultrasound to rule out DVT. MD complaint: Left lower extremity swelling Onset (ago): day(s) Location: left and lower extremity Severity: mild Quality: aching Pain Consistency: colicky Relieving factors: rest Exacerbating factors: movement Associated symptoms: denies other symptoms Treatments prior to arrival: none Related Data Home Medications Medication Instructions Recorded Confirmed atenolol 50 mg tablet 50 mg PO DAILY 06/07/23 06/07/23 atorvastatin 20 mg tablet 20 mg PO BEDTIME 06/07/23 06/07/23 ketorolac 0.5 % eye drops 1 drp ophthalmic (eye) QID PRN 06/07/23 06/07/23 Pain, Mild levothyroxine 88 mcg tablet 88 mcg PO DAILY@0600 06/07/23 06/07/23 lisinopril 10 mg tablet 10 mg PO DAILY 06/07/23 06/07/23 rivaroxaban 20 mg tablet (Xarelto) 20 mg PO DAILY@1700 06/07/23 06/07/23 timolol maleate 0.5 % eye drops 1 drp ophthalmic (eye) BID 06/07/23 06/07/23 Previous Rx's Medication Instructions Recorded amoxicillin 875 mg-potassium 1 tab PO BID #10 tabs 06/10/23 clavulanate 125 mg tablet loperamide 2 mg capsule 2 mg PO Q4H PRN Diarrhea #10 caps 06/10/23 Allergies Allergy/AdvReac Type Severity Reaction Status Date / Time codeine AdvReac Nausea Verified 06/12/23 18:12 oxycodone AdvReac Nausea Uncoded 06/07/23 11:49 Review of Systems Review of Systems: As per HPI. 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 Atrial fibrillation Surgical History Knee joint replacement status Social History Social History Household Members: Children Housing: House Do you presently have visiting nurse or other home services: No Patient Tobacco Use Status: Never used Tobacco Advance Directives: No Advance Directives Information Provided: No service: No Physical Exam ED Vital Signs: Vital Signs - 24 hr 06/12/23 18:12 Temperature 98.3 F Pulse Rate 82 Respiratory Rate 16 Blood Pressure 164/90 H Pulse Oximetry 96 Oxygen Delivery Method Room Air BMI result Body Mass Index 35.7 Vital signs have been reviewed and appear to be correct. Blood pressure elevated. Heart rate normal. Respiratory rate normal. Temperature normal. Oxygen saturation normal. Const General: cooperative, healthy appearing and no acute distress Orientation/consciousness: oriented to person, oriented to place, oriented to time and patient oriented x3 Limitations: no limitations HENMT Head: Yes normocephalic and Yes atraumatic Ears: external ears normal General nose exam: Normal external nose present Face and sinus: Yes face symmetric Mouth: oropharynx normal and moist mucous membranes Throat: Yes uvula midline Eyes Pupils: Equal, round and reactive pupils present Neck Neck: Yes normal visual inspection and Yes supple Resp Effort & Inspection: normal respiratory effort and able to speak in complete sentences Auscultation: clear to auscultation bilaterally Cardio Rate: regular rate Rhythm: regular rhythm Heart sounds: S1 normal heart sound present and S2 normal heart sound present GI Palpation (GI): Soft to palpation and nontender Auscultation: normoactive bowel sounds General: Yes no CVA tenderness Back/Spine/Pelvis Back: no CVA tenderness Skin General skin exam: elasticity normal and turgor normal Neuro General: oriented to person, oriented to place, oriented to time, patient oriented x3, moves all extremities, no focal motor deficits and CN's II-XI intact bilaterally Cranial nerves: Yes Equal, round and reactive pupils present Cognition (Neuro): normal cognition Extrem General: Yes full ROM and Yes normal exam except as noted Left lower extremity: knee Details: tenderness Location: of the popliteal fossa, lower leg Details: pitting edema Details: 2+ and other (Slight erythema to distal left lower extremity improved since visit on 06/07) and foot Details: vascular exam Details: dorsalis pedis pulse present and posterior tibial pulse present Psych Mental Status: mental status grossly normal Affect: normal affect Thought process: Normal thought process present Course Course Course Narrative: 78-year-old female presents for evaluation of left leg pain and swelling. She was discharged here 2 days ago after being admitted for cellulitis the left lower leg due to a cat bite. She continues to be antibiotics but reports that her symptoms are now showing worsening swelling. Her doctor told to come here to ?make sure it is not a blood clot. ? ultrasound ordered. She has good pulses Medical Decision Making Medical Decision Making MDM Narrative: Patient is an 78-year-old female presenting to the emergency department with swelling to her left lower leg. On exam patient is awake, A+Ox3, BP elevated, VS otherwise WNL, afebrile, normal neurological exam without focal deficits, physical exam findings as above. Given reported symptoms and physical exam findings, initial differential includes DVT, lymphedema. Ultrasound notable for no evidence of DVT. My interpretation is in agreement with the radiologist's interpretation. Results discussed with patient and all questions answered. Advised patient to keep leg elevated while at rest, can use a compression stocking to left leg to decrease swelling. Instructed patient to continue course of prescribed antibiotics until completed. Instructed patient to follow- up with primary care provider. Return precautions discussed at bedside. Patient verbalized understanding of and agreement with plan. Differential Diagnosis Differential Diagnoses: The differential diagnosis associated with the presentation includes As per MDM. Admission/Observation Consideration of admission/observation: Escalation of care including admission/observation considered Independent Interpretation I performed an independent interpretation of an: Ultrasound Interpretation: No evidence of DVT Radiology Impression Discussion of test interpretation with radiology: I have reviewed the radiologist's reading. Radiologist Impression: Patient is an 78-year-old female presenting to the emergency department with swelling to her left lower leg. External Record Review External record reviewed: Inpatient record, Office record and Outpatient record Discharge Plan Discharge Clinical Impression: Swelling of left lower extremity Patient Disposition: Home, Self-Care Additional Instructions: You were evaluated in the emergency department today for swelling to your left lower leg. Your ultrasound did not show evidence of a DVT or blood clot in your leg. Please continue to take your prescribed antibiotics until you have completed the full course. Follow up with your primary care provider. Return to the emergency department if you develop worsening pain, increased swelling, new numbness, weakness, tingling to your leg, chest pain, shortness of breath, or any other concerning symptoms. Prescriptions: No Action atorvastatin 20 mg tablet 20 mg PO BEDTIME ketorolac 0.5 % drops 1 drp ophthalmic (eye) QID PRN (Reason: Pain, Mild) levothyroxine 88 mcg tablet 88 mcg PO DAILY@0600 lisinopril 10 mg tablet 10 mg PO DAILY timolol maleate 0.5 % drops 1 drp ophthalmic (eye) BID atenolol 50 mg tablet 50 mg PO DAILY Xarelto 20 mg tablet 20 mg PO DAILY@1700 loperamide 2 mg Capsule 2 mg PO Q4H PRN (Reason: Diarrhea) Qty: 10 0RF amoxicillin-pot clavulanate 875-125 mg tablet 1 tab PO BID Qty: 10 0RF
[2023-06-12 20:13] VITALS: BP 159/72; PULSE 68; RESP 20; TEMP 36.7; O2SAT 98
== END 2023-06-12 20:23 | disposition home or self-care (01) ==
PROVIDERS: Emergency Provider Internal Medicine
DX: R60.0 Localized edema (principal); Z79.899 Other long term (current) drug therapy
CPT/HCPCS: 93971; 99282; 99284

== ENCOUNTER 2024-03-24 18:54 | Emergency (ER) | payer MEDICARE, BC, SELFPAY ==
[2024-03-24 19:17] VITALS: BP 184/64; PULSE 76; RESP 20; TEMP 36.5; O2SAT 95; BMI 30.2
--- NOTE | 2024-03-24 19:17 | ED_ITS ---
HPI - Animal Bite General Chief Complaint: Skin/Abscess/Foreign Body Stated Complaint: cat scratch left foot Time Seen by Provider: 03/24/24 19:21 Source: patient, RN notes reviewed and old records reviewed Mode of arrival: ambulatory History of Present Illness ED Provider: Amy Dow PA-C HPI narrative: 78-year-old female with a past medical history AFib on Xarelto, HTN, HLD, presenting to the ED complaining of cat scratch to left leg s/p accidentally stepping on her cat [employer]. Patient and cat are up-to-date on vaccinations. Denies injury to the area, fever/chills MD complaint: animal bite Related Data Home Medications ?Medication ?Instructions ?Recorded ?Confirmed atenolol 50 mg tablet 50 mg PO DAILY 06/07/23 06/07/23 atorvastatin 20 mg tablet 20 mg PO BEDTIME 06/07/23 06/07/23 ketorolac 0.5 % eye drops 1 drp ophthalmic (eye) QID PRN 06/07/23 06/07/23 Pain, Mild levothyroxine 88 mcg tablet 88 mcg PO DAILY@0600 06/07/23 06/07/23 lisinopril 10 mg tablet 10 mg PO DAILY 06/07/23 06/07/23 rivaroxaban 20 mg tablet (Xarelto) 20 mg PO DAILY@1700 06/07/23 06/07/23 timolol maleate 0.5 % eye drops 1 drp ophthalmic (eye) BID 06/07/23 06/07/23 Previous Rx's ?Medication ?Instructions ?Recorded amoxicillin 875 mg-potassium 1 tab PO BID #10 tabs 06/10/23 clavulanate 125 mg tablet loperamide 2 mg capsule 2 mg PO Q4H PRN Diarrhea #10 caps 06/10/23 amoxicillin 875 mg-potassium 1 tab PO BID 7 days #14 tabs 03/24/24 clavulanate 125 mg tablet Allergies Allergy/AdvReac Type Severity Reaction Status Date / Time codeine AdvReac Nausea Verified 03/24/24 19:18 oxycodone AdvReac Nausea Uncoded 03/24/24 19:18 Review of Systems Review of Systems: Constitutional: No Fever, No Chills ENT/Mouth: No Ear Pain, No Nasal Congestion, No sore throat, No Rhinorrhea, No Swallowing Difficulty Cardiovascular: No Chest Pain, No SOB Musculoskeletal: No joint pain, No Myalgias, No Joint Swelling Skin: +Skin Lesions, No rash Neuro: No Weakness, No Numbness, No Paresthesias Yes all other systems are reviewed and are negative Constitutional: Constitutional: Reports as per [facility] Past Medical History Attestation statement: The following information was validated with the patient. Source: old records reviewed Medical History Blood clot in eye Glaucoma Hypothyroid HLD (hyperlipidemia) Hypertension Hx of equipment [employer] use of blood thinners Atrial fibrillation Surgical History Knee joint replacement status Social History Social History Household Members: Children Housing: House Do you presently have visiting nurse or other home services: No Comment: s3 Patient Tobacco Use Status: Never used Tobacco service: No Physical Exam ED Vital Signs: Vital Signs - 24 hr 03/24/24 19:17 Temperature 97.7 F Pulse Rate 76 Respiratory Rate 20 Blood Pressure 184/64 H Pulse Oximetry 95 Oxygen Delivery Method Room Air BMI result Body Mass Index 30.2 Const General: cooperative, healthy appearing and no acute distress Orientation/consciousness: patient oriented x3 Limitations: no limitations HENMT Head: Yes normal to inspection and Yes atraumatic Ears: hearing grossly normal bilaterally General nose exam: Normal external nose present Face and sinus: Yes normal facial exam Eyes General: appearance normal, both eyes and all related structures EOM: EOMs intact bilaterally Neck Neck: Yes normal visual inspection and Yes no meningeal signs Resp Effort & Inspection: normal respiratory effort and no respiratory distress Cardio Rate: regular rate General: Yes no CVA tenderness Back/Spine/Pelvis Back: no CVA tenderness Skin Other: +small scratches/puncture wounds noted to left lower leg. No active bleeding. No fluctuance/induration or streaking. Not circumferential. Rashes: no rashes Neuro General: patient oriented x3, tone normal and no meningeal signs Cranial nerves: Yes CN's II-XII intact bilaterally Gait exam (Neuro): Normal gait present Extrem General: Yes normal to inspection Medical Decision Making Medical Decision Making MDM Narrative: 78-year-old female with a past medical history AFib on Xarelto, HTN, HLD, presenting to the ED complaining of cat scratch to left leg s/p accidentally stepping on her cat [employer]. On exam vital signs stable, NAD, nontoxic appearing, physical exam as noted above with superficial wounds to left lower leg. No evidence of active cellulitis or abscess. Plan: P.o. Augmentin, PCP follow-up Please refer to course for remaining clinical decision making, interpretation of labs/imaging results, and discussions with consultants and/or family members. Results discussed with patient including worrisome signs and symptoms and strict return precautions, and when to return to the emergency department. They verbalized understanding and feel safe for discharge at this time. Differential Diagnosis Differential Diagnoses: The differential diagnosis associated with the presentation includes As above External Record Review External record reviewed: Inpatient record, Office record, Outpatient record, Prior outpatient labs, Prior outpatient radiology, Primary care record and Outside ED record Tests considered The following testing was considered but not selected: As above Prescription Management I considered prescription management with: Antibiotic Discharge Plan Discharge Clinical Impression: Cat scratch Patient Disposition: Home, Self-Care Instructions: Animal Bite (ED) Additional Instructions: Augmentin is an antibiotic taken to completion Keep a close eye on the area, if begins look infected, is red or there is pus drainage or you have fever return to the ED Follow-up with your Doctor Prescriptions: New amoxicillin-pot clavulanate 875-125 mg tablet 1 tab PO BID 7 Days Qty: 14 0RF No Action atorvastatin 20 mg tablet 20 mg PO BEDTIME ketorolac 0.5 % drops 1 drp ophthalmic (eye) QID PRN (Reason: Pain, Mild) levothyroxine 88 mcg tablet 88 mcg PO DAILY@0600 lisinopril 10 mg tablet 10 mg PO DAILY timolol maleate 0.5 % drops 1 drp ophthalmic (eye) BID atenolol 50 mg tablet 50 mg PO DAILY Xarelto 20 mg tablet 20 mg PO DAILY@1700 loperamide 2 mg Capsule 2 mg PO Q4H PRN (Reason: Diarrhea) Qty: 10 0RF amoxicillin-pot clavulanate 875-125 mg tablet 1 tab PO BID Qty: 10 0RF Referrals: Physician,Unknown J [Primary Care Provider] - 1 week Print Language: Divehi
[2024-03-24 19:25] VITALS: BP 184/64; PULSE 76; RESP 20; TEMP 36.5; O2SAT 95
== END 2024-03-24 19:29 | disposition home or self-care (01) ==
LOC: HO.ED 19:30
PROVIDERS: Emergency Provider Student in an Organized Health Care Education/Training Program
DX: S90.812A Abrasion, left foot, initial encounter (principal); I48.91 Unspecified atrial fibrillation; W55.03XA Scratched by cat, initial encounter; Y93.89 Activity, other specified; Y92.89 Other specified places as the place of occurrence of the external cause; Y99.8 Other external cause status; Z79.01 Long term (current) use of anticoagulants; Z79.899 Other long term (current) drug therapy
CPT/HCPCS: 99282; 99283